=== PATIENT | male | born 1985 | race Caucasian/White ===

== ENCOUNTER 2017-05-31 17:36 | Emergency (ER) | payer SELFPAY ==
[~2017-05-31] VITALS: Ht 175.3 cm; Wt 109.0 kg
[2017-05-31] MEDS ORDERED: SODIUM CHLORIDE 0.9% 1,000 ML IV ONE (21:36)
[2017-05-31 22:35] LABS: BASOPHILS % 0.5 % (0.0-2.0); EOSINOPHILS % 0.6 % (0.0-5.0); HEMATOCRIT. 40.3 % (42.0-52.0); HEMOGLOBIN. 13.4 g/dL (14.0-18.0); LYMPHOCYTES % 36.3 % (20.0-50.0); MEAN CORPUSCULAR HEMOGLOBIN 26.8 pg (28.0-32.0); MEAN CORPUSCULAR VOLUME 80.7 fL (80.0-94.0); MEAN PLATELET VOLUME 8.4 fl (7.4-10.4); MONOCYTES % 4.1 % (2.0-8.0); NEUTROPHILS % 58.5 % (40.0-76.0); PLATELET 252 x1000/uL (130-400); RED BLOOD CELL COUNT 4.99 mill/uL (4.7-6.1); RED CELL DISTRIBUTION WIDTH 13.5 % (11.6-14.6)
[2017-05-31 22:38] LABS: CHLORIDE 104 mEq/L (98-107)
[2017-05-31 22:40] LABS: CARBON DIOXIDE 26 mEq/L (21-32)
[2017-05-31 22:43] LABS: D-DIMER 0.23 mg/L FEU (<0.50); PROTHROMBIN TIME 10.7 sec
[2017-05-31 22:47] LABS: TROPONIN I < 0.02 ng/mL (0.00-0.04)
[2017-05-31 22:57] VITALS: BP 129/75
== END 2017-05-31 23:54 | disposition home or self-care (01) ==
LOC: ER 18:05
DX: R55 Syncope and collapse (principal); H53.8 Other visual disturbances; R11.0 Nausea; F17.290 Nicotine dependence, other tobacco product, uncomplicated
CPT/HCPCS: 36415; 71010; 80053; 83880; 84484; 85025; 85379; 85610; 93005; 99285; J7030